=== PATIENT | male | born 1980 | race Two or more races ===

== ENCOUNTER 2020-07-17 11:01 | Emergency (ER) | payer SELFPAY ==
[~2020-07-17] VITALS: Ht 180.3 cm; Wt 79.4 kg
[2020-07-17] MEDS ORDERED: PANTOPRAZOLE 40 MG/10 ML VIAL INJ IV STA (11:06)
[2020-07-17] MEDS ORDERED: PROCHLORPERAZINE EDISYLATE 5 MG/ML 2ML VIAL IV ONE (11:15)
[2020-07-17] MEDS ORDERED: HYDROmorphone HCL 2 MG/ML VL IV ONE (11:15)
[2020-07-17] MEDS ORDERED: SODIUM CHLORIDE 0.9% 1,000 ML IVB ONE (11:15)
[2020-07-17 11:49] LABS: Basophils # (auto) 0 10 ^3/uL (0-0.2); Basophils % (auto) 0.4 % (0.0-2.0); Eosinophils # (auto) 0 10 ^3/uL (0-0.8); Eosinophils % (auto) 0.2 % (0.0-7.0); Hematocrit 40.6 % (41.0-53.0); Hemoglobin 14.2 g/dL (13.5-17.5); Lymphocytes # (auto) 0.9 10 ^3/uL (0.4-5.4); Lymphocytes % (auto) 9.4 % (10.0-50.0); Mean Corpuscular Hemoglobin 30.5 pg (28.0-32.0); Mean Corpuscular Hgb Conc. 35.1 g/dL (32.0-36.0); Mean Corpuscular Volume 86.8 fL (80.0-100.0); Monocytes # (auto) 0.4 10 ^3/uL (0-1.3); Monocytes % (auto) 4.5 % (0.0-12.0); Neutrophils # (auto) 8.1 10 ^3/uL (1.6-8.6); Neutrophils % (auto) 85.5 % (37.0-80.0); Platelet Count (auto) 300 10^3/uL (140-450); Red Blood Cells 4.67 10^6/uL (4.5-5.90); Red Cell Distribution Width 12.3 % (11.8-14.3); White Blood Cell 9.5 10^3/uL (4.4-10.8)
[2020-07-17 12:13] LABS: Alanine Aminotransferase 31 U/L (16-61); Albumin 4.5 g/dL (3.4-5.0); Amylase 54 U/L (25-115); Anion Gap 7 (5-15); Aspartate Aminotransferase 18 U/L (15-37); BUN/Creatinine Ratio 18.4; Blood Urea Nitrogen 18 mg/dL (7-18); Calcium 9.3 mg/dL (8.5-10.1); Carbon Dioxide 25 mmol/L (21-32); Chloride 104 mmol/L (98-107); GFR African American 109 mL/min; GFR Non-African American 90 mL/min; Glucose 203 mg/dL (74-106); Lipase 96 U/L (73-393); Potassium 3.7 mmol/L (3.5-5.1); Sodium 136 mmol/L (136-145)
[2020-07-17 12:18] LABS: Alkaline Phosphatase 66 U/L (45-117); Bilirubin, Total 0.6 mg/dL (0.2-1.0); Total Protein 7.9 g/dL (6.4-8.2)
[2020-07-17 14:00] VITALS: BP 105/69
== END 2020-07-17 14:48 | disposition home or self-care (01) ==
LOC: ER 11:01 → EDBD 11:01 → ER 14:48
DX: F10.230 Alcohol dependence with withdrawal, uncomplicated (principal)
CPT/HCPCS: 36415; 76705; 80053; 80320; 82150; 83690; 84484; 85025; 93005; 96361; 96374; 96375; 99285; C9113; J0780; J1170; J7030